=== PATIENT | male | born 1965 | race Caucasian/White ===

== ENCOUNTER 2020-10-04 12:55 | Emergency (ER) | payer OTHER ==
[~2020-10-04] VITALS: Ht 180.3 cm; Wt 79.5 kg
[2020-10-04] MEDS ORDERED: OMEP20 PO (13:12)
[2020-10-04] MEDS ORDERED: IBUP-2070 PO (13:12)
[2020-10-04] MEDS ORDERED: SODIUM CHLORIDE 0.9% 1,000 ML IV ONE (15:45)
[2020-10-04] MEDS ORDERED: KETOROLAC TROMETHAMINE 30 MG/ML VIAL IVP ONE (15:45)
[2020-10-04] MEDS ORDERED: MORPHINE SULFATE 4 MG/ML SYRINGE IVP ONE (16:30)
[2020-10-04 18:14] VITALS: BP 141/84
== END 2020-10-04 18:30 | disposition home or self-care (01) ==
LOC: EMS 13:08
DX: M54.5 Low back pain (principal); R10.32 Left lower quadrant pain; R31.9 Hematuria, unspecified; F17.210 Nicotine dependence, cigarettes, uncomplicated; F12.90 Cannabis use, unspecified, uncomplicated
CPT/HCPCS: 74176; 96361; 96374; 96375; 99284; J1885; J2270; J7030